=== PATIENT | female | born 1945 | race Caucasian/White ===

== ENCOUNTER 2018-10-27 12:15 | Emergency (ER) | payer OTHER ==
[~2018-10-27] VITALS: Ht 157.5 cm; Wt 73.5 kg
[2018-10-27] MEDS ORDERED: PREDNISONE 5 MG5 M1 PO (13:35)
[2018-10-27] MEDS ORDERED: FISH OIL 1,001000 M2 PO (13:36)
[2018-10-27] MEDS ORDERED: LEXAPRO 10 MG T10 M2 PO (13:36)
[2018-10-27] MEDS ORDERED: PROVEX CV PO (13:37)
[2018-10-27] MEDS ORDERED: PROBIOTIC1 EAC1 PO (13:37)
[2018-10-27] MEDS ORDERED: [UNRECOGNIZED DRUG - OTHER] PO (13:37)
[2018-10-27] MEDS ORDERED: [UNRECOGNIZED DRUG - OTHER] PO (13:37)
[2018-10-27] MEDS ORDERED: MAGOX 400400 MG PO (13:38)
[2018-10-27] MEDS ORDERED: CRANBERRY400 M1 PO (13:38)
[2018-10-27 14:01] LABS: ABSOLUTE NEUTROPHILS 5.5 thou/uL (1.4-8.2); BASOPHILS 0.7 % (0.0-2.0); EOSINOPHILS 0.3 % (0.0-3.0); HEMATOCRIT 40.5 % (37.0-47.0); HEMOGLOBIN 13.6 gm/dL (12.0-15.0); LYMPHOCYTES 17.9 % (24.0-44.0); MCH 30.4 pg (26.0-34.0); MCHC 33.6 g/dL (28.0-37.0); MCV 90.5 fL (80.0-100.0); MONOCYTES 6.9 % (1.0-8.0); PLATELET COUNT 229 thou/uL (150-400); POLYS 74.2 % (36.0-66.0); RBC 4.47 mil/uL (4.20-5.00); RDW 14.4 % (10.5-14.5); WBC 7.5 thou/uL (4.0-11.0)
[2018-10-27 14:18] LABS: ANION GAP 10 mmol/L (7-16); BUN 15 mg/dL (7-18); CHLORIDE 102 mmol/L (98-107); CO2 28 mmol/L (21-32); CREATININE 0.6 mg/dL (0.6-1.0); GLUCOSE 115 mg/dL (74-106); POTASSIUM 4.3 mmol/L (3.5-5.1); SODIUM 140 mmol/L (136-145)
[2018-10-27 14:22] LABS: ALBUMIN 3.5 g/dL (3.4-5.0); SGOT 19 U/L (15-37); SGPT 20 U/L (30-65); TOTAL BILIRUBIN 0.4 mg/dL (<0.1-1.0); TOTAL PROTEIN 7.3 g/dL (6.4-8.2); TROPONIN-I <0.06 ng/mL (<0.06)
[2018-10-27 14:53] VITALS: BP 142/57
[2018-10-27 15:08] LABS: URINE BILIRUBIN NEGATIVE (Negative); URINE BLOOD NEGATIVE (Negative); URINE CLARITY CLEAR; URINE COLOR YELLOW; URINE GLUCOSE-RANDOM* NEGATIVE (Negative); URINE KETONES NEGATIVE (Negative); URINE LEUKOCYTES-REFLEX NEGATIVE (Negative); URINE NITRITE-REFLEX NEGATIVE (Negative); URINE PROTEIN (DIPSTICK) NEGATIVE (Negative); URINE UROBILINOGEN 0.2 E.U./dl (0.2-1.0)
--- NOTE | 2018-10-27 17:14 | EKG ---
[place] [address] [facility] [place] [address] ELECTROCARDIOGRAM REPORT Name: ABDIEL PEÑA Room #: [id number] ������������������ Admission: 10/27/18 ������������������ Attend Phys: Discharge: 10/27/18 ������������������ Date of : 45 Report #: [id number] ����������������������������������������������������������������� [id number] THIS REPORT FOR: //name// [facility] ED Test Date: 2018-10-27 Test Time: 14:01:40 Pat Name: ABDIEL PEÑA Department: Room: Gender: F [employer]: EDVIN : 1945 Requested By: Camille Pinto Order Number: [id number] MD: Walker Quarles Measurements Intervals [place] Rate: 69 P: 52 SD: 162 QRS: 30 QRSD: 141 T: 52 QT: 396 QTc: 425 Interpretive Statements Sinus rhythm Normal tracing No previous ECG available for comparison Electronically Signed On 10-27-2018 17:14:33 CDT by Walker [email or web address] [email or web address] ��������������������������������������������� <ELECTRONICALLY SIGNED> ���������������������������������������� By: Walker Quarles MD, [facility] ��������������������������������������������� 10/27/18 1714 1401 1401 Walker Quarles MD, FACC /EPI
== END 2018-10-27 15:45 | disposition home or self-care (01) ==
LOC: ER 12:15
PROVIDERS: Physician Assistant
DX: I10 Essential (primary) hypertension (principal); F43.9 Reaction to severe stress, unspecified; R53.83 Other fatigue; J45.909 Unspecified asthma, uncomplicated; Z90.49 Acquired absence of other specified parts of digestive tract; Z90.711 Acquired absence of uterus with remaining cervical stump; Z88.0 Allergy status to penicillin